=== PATIENT | male | born 1985 | race Caucasian/White ===

== ENCOUNTER 2019-12-20 07:30 | Outpatient (RCR) | payer OTHER, MEDICAID, SELFPAY ==
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
--- NOTE | 2019-12-02 15:22 | PT-OP ANOTE ---
At 1415, PT calls and speaks with ortho PA-C, Kate Brewer, to clarify order received by fax re: no stationary bike with boot on. PA-C clears pt to ride stationary bike without boot as long as he does not have pain. PT communicates need for activity order for WBAT in shoe with PT when he returns to see PA-C. PT also communicates concern that pt's left foot is cool to touch.
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
== END 2019-12-20 12:32 ==
LOC: PHYS 07:30
PROVIDERS: Family Provider Family Medicine; PCP Family Medicine; Referring Provider Physician Assistant Medical; Visit Provider Orthopaedic Surgery
DX: S92.342D Displaced fracture of fourth metatarsal bone, left foot, subsequent encounter for fracture with routine healing (principal); S92.252D Displaced fracture of navicular [scaphoid] of left foot, subsequent encounter for fracture with routine healing
CPT/HCPCS: 97110; 97116; 97140; 97161